=== PATIENT | male | born 1980 | race Two or more races ===

== ENCOUNTER 2016-04-25 15:40 | Emergency (ER) | payer BC ==
[~2016-04-25] VITALS: Ht 170.2 cm; Wt 74.8 kg
--- NOTE | 2016-04-25 15:44 | Emergency Room Report ---
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 Clinical Suspician of Infection? Mental Status: Sepsis Risk: Have you (or family members/close friends) recently traveled outside the [place]? If Yes, where/when: Have you had exposure to infectious disease within the past month? TB? Other? Specify: Source patient, RN notes reviewed Exam Limitations no limitations Comment comes to the ED with chest pain and left arm pain and bilat.leg pains off and on for past 6 months. 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 He denies any sweats but says it does become hard to breathe from time to time. Mild non- productive cough. No sore throat or runny nose Cardiac Chest Pain Chest pain indicative of cardiac Yes ALLERGIES Coded Allergies: No Known Allergies (04/25/16) Home Medications Reported Medications No Known Home Medications History Medical History Surgical Hx Previous Surgery?N Review of Systems All Other Systems Reviewed and Negative Constitutional see HPI ENT see HPI. Respiratory see HPI Cardiovascular see HPI Musculoskeletal see HPI Physical Exam Vital Signs Vital Signs Date Time Temp Pulse Resp B/P Pulse O2 O2 Flow FiO2 Ox Delivery Rate 04/25 1815 98.2 81 18 134/79 100 04/25 1734 83 18 134/79 100 04/25 1609 89 18 159/98 98 04/25 1541 98.2 93 18 159/98 99 General Appearance normal appearance, WD/WN, no apparent distress Ear, Nose, Throat normal ENT inspection Respiratory Status No: respiratory distress. Lung Sounds bilateral: wheezing. Cardiovascular normal exam, regular rate/rhythm Neurologic alert, senior software engineer analytics II-XII nml as tested Medical Decision Making LABS/Meds/Orders Pt receiving controlled substance in ED? No Results/Orders Laboratory Tests 04/25/16 1545: Sodium 139, Potassium 3.7, Chloride 102, Carbon Dioxide 32, BUN 11, Creatinine 0.6 L, Estimated Creat Clear 178, Estimated GFR (MDRD) 152, Glucose 106, Calcium 8.4 L, Total Bilirubin 0.4, AST 23, ALT 40, Alkaline Phosphatase 95, Creatine Kinase 120, CK-MB (CK-2) Rel Index 1.1, CK and CKMB Interp 1.3, Troponin I < 0.02, Total Protein 7.9, Albumin 3.7, Globulin 4.2 H, Albumin/ Globulin Ratio 0.9 L, D-Dimer < 100, WBC 6.4, RBC 5.49, Hgb 15.2, Hct 46.2, MCV 84.0, RDW 13.2, Plt Count 283, MPV 8.4, Gran % 63.0, Gran # 4.0, Lymphocytes % 27.4, Monocytes % 6.2, Eosinophils % 3.0, Basophils % 0.4, Lymphocytes # 1.8, Monocytes # 0.4, Eosinophils # 0.2, Basophils # 0.0, PUBS MCHC 32.8, MCH 27.6 Current Medication Orders Sig/Jasper Start time Last Medication Dose Route Stop Time Status Admin Albuterol/Ipratropium 0 .STK-MED ONE 04/25 1618 DC INH Sodium Chloride 1,000 ML .STK-MED ONE 04/25 1614 DC IV Aspirin 0 .STK-MED ONE 04/25 1613 DC .ROUTE Albuterol/Ipratropium 3 ML ONCE ONE 04/25 1600 DC 04/25 INH 04/25 1601 1626 Aspirin 324 MG ONCE ONE 04/25 1600 DC 04/25 PO 04/25 1601 1615 Sodium Chloride 10 ML PRN PRN 04/25 1600 AC IV 04/26 1552 Sodium Chloride 1,000 ML .Q1H1M 04/25 1600 DC 04/25 IV 04/25 1700 1615 Sodium Chloride 10 ML PRN PRN 04/25 1600 AC IV 04/26 1552 Orders Procedure Date/time Status RT Aerosol Treatment, Provide 04/25 1626 Active ELECTROCARDIOGRAM REQUEST 04/25 1553 Active RT REQUEST DUONEB 04/25 1553 Active IV SALINE LOCK 04/25 1553 Active D-DIMER 04/25 1553 Complete CBC WITH AUTO DIFF 04/25 1553 Complete CARDIAC ENZYMES 04/25 1553 Complete CHEM 12 PROFILE 04/25 1553 Complete 12 LEAD EKG-[facility] (INITIAL) 04/25 1550 Active CM/EKG CM/EKG EKG rate (92), NSR, non-spec. ST/Twave chgs Departure Departure Time of Disposition 1842 Disposition DC Home or Self Care(routine) Clinical Impression Primary Impression: Bilateral bronchopneumonia Condition STABLE Patient Instructions DI for Pneumonia -- Adult, Pneumonia-Adult Additional Instructions Use medicines as directed and followup with PCP in 1 week to recheck ...Return to the ED with any worsening symptoms Discharge Counseling Counseled pt/family regarding diagnosis, test results, medications/RX, home care, follow up needs Prescriptions Current Visit Scripts Azithromycin (Zithromax) 250 MG PO DIRECTED #6 TAB TAKE 2 PILLS THE FIRST DAY AND THEN 1 PILL A DAY FOR 4 MORE DAYS Dextromethorphan Hb/Doxylamine (Robitussin Nighttime Cough Dm) 5 ML PO Q4HP PRN COUGH #240 ML Ref 1 ED Critical Care Critical Care No If Critical Care minutes are documented, the time involved in the performance of seperately reportable procedures was not counted toward critical care time documented. I directly delivered medical care to this critically ill and/or injured patient. Timely evaluation and treatment was necessary to address the significant organ system(s) dysfunction present in this patient. at 1846
[2016-04-25 16:03] LABS: HEMOGLOBIN 15.2 g/dL (14.1-18.0); LYMPH # 1.8 K/mm3 (0.7-4.5); LYMPH % 27.4 % (10-50)
[2016-04-25 16:23] LABS: BUN 11 mg/dL (7-18)
[2016-04-25 16:27] LABS: GFR (ESTIMATED) 152 ML/MIN (>60)
--- NOTE | 2016-04-25 17:57 | RADIOLOGY REPORT PS360 ---
CHEST(2 VIEWS-NOT PORTABLE) HISTORY: Cough with chest pain CHEST PAIN ORDERING PHYSICIAN: Kieran Lyons MD PATIENT AGE: 36 years COMPARISON: None available FINDINGS: The cardiomediastinal silhouette and pulmonary vascularity are within normal limits. There is coarsening of the bronchovascular markings with increased density in the perihilar regions and lower lobes medially bilaterally consistent with bronchopneumonia. No obvious effusion No acute bony abnormalities. IMPRESSION: Bilateral bronchopneumonia
[2016-04-25] MEDS ORDERED: ROBITUSSIN NIG118 ML PO (18:45)
[2016-04-25] MEDS ORDERED: ZITHROMAX Z-PA250 M2 PO (18:45)
[2016-04-25 19:00] VITALS: BP 149/84
== END 2016-04-25 19:03 | disposition home or self-care (01) ==
LOC: ER 15:40
PROVIDERS: General Practice
DX: J18.0 Bronchopneumonia, unspecified organism (principal)